=== PATIENT | female | born 1995 | race Caucasian/White ===

== ENCOUNTER → 2016-09-27 | Outpatient (CLI) | payer MEDICAID ==
--- NOTE | 2016-09-27 10:36 | MR ---
EXAMINATION TYPE: MR knee LT wo con DATE OF EXAM: 09/27/2016 8:48 AM COMPARISON: Outside left knee x-ray September 13, 2016 HISTORY: Left knee pain per order. Inner knee pain and swelling for 2 months per patient. TECHNIQUE: Multiplanar, multisequence images of the knee is performed without IV contrast. FINDINGS: MEDIAL MENISCUS: Anterior horn is intact without tear. Some increased signal posterior horn of medial meniscus does not extend to articular surface seen on sagittal images 24 through 21 posterior aspect . LATERAL MENISCUS: Anterior and posterior horns are intact without tear. CRUCIATE LIGAMENTS: The anterior and posterior cruciate ligaments are intact and unremarkable. COLLATERAL LIGAMENTS: The medial collateral ligament and lateral collateral ligament complex are inta ct and unremarkable. EXTENSOR MECHANISM: Visualized quadriceps and patellar tendons are intact. EFFUSION: There is fairly moderate to large size suprapatellar joint effusion. Some internal debris m ay reflect product of synovitis. POPLITEAL CYST: No popliteal/bhakta cyst. TRICOMPARTMENT SPACES: Tricompartment joint spaces are preserved. No significant spurring is seen. CARTILAGE: Tricompartment articular cartilage is maintained. No significant chondromalacia patella is noted. BONE MARROW SIGNAL: No focal abnormal marrow signal is appreciated. OTHER: No additional significant abnormality is appreciated. IMPRESSION: 1. Moderate to large size suprapatellar joint effusion, possible synovitis, clinical correlation advi sed. 2. Intrasubstance tear posterior horn of medial meniscus, no full-thickness meniscal or ligamentous t ear identified.
== END | disposition home or self-care (01) ==
LOC: RADMRIMAIN 08:00
PROVIDERS: ATTEND Orthopaedic Surgery
DX: S83.242A Other tear of medial meniscus, current injury, left knee, initial encounter (principal)

== ENCOUNTER 2016-09-29 18:24 | Inpatient (IN) | payer MEDICAID ==
--- NOTE | 2016-09-29 19:25 | ED ---
Psych HPI - General Chief Complaint: Psychiatric Symptoms Stated Complaint: SUICIDAL THOUGHTS Time Seen by Provider: 09/29/16 19:09 Source: patient Mode of arrival: ambulatory - History of Present Illness Initial Comments: Is a 20-year-old woman who presents to be evaluated for worsening of depression and also suicidal ideation. The patient relates that she had a significantly stressful event about 4 or 5 months ago, and that she has had worsening depression since that time . she states that she is also having thoughts of harming herself. She has no history of previous psychiatric treatment. Patient denies any hallucinations or homicidal ideation. MD Complaint: suicidal ideation, feels depressed -: month(s) Associated Psychiatric Symptoms: depression, suicidal ideation History of same: Yes Quality: getting worse Improves With: none Worsens With: none Context: significant life stressor Associated Symptoms: denies other symptoms - Related Data Home Medications Medication Instructions Recorded Confirmed Ibuprofen [Motrin] 800 mg PO BID PRN 09/29/16 09/29/16 Norgestimate-Ethinyl Estradiol 1 tab PO DAILY 09/29/16 09/29/16 [Tri-Sprintec Tablet] Allergies Allergy/AdvReac Type Severity Reaction Status Date / Time No Known Allergies Allergy Verified 09/29/16 18:59 Review of Systems ROS Statement: Those systems with pertinent positive or pertinent negative responses have been documented in the HPI. ROS Other: All systems not noted in ROS Statement are negative. Constitutional: Denies: fever, chills, weakness Respiratory: Denies: cough, dyspnea Cardiovascular: Denies: chest pain Gastrointestinal: Denies: abdominal pain, nausea, vomiting Genitourinary: Denies: dysuria, hematuria, abnormal menses Musculoskeletal: Denies: back pain Skin: Denies: rash Neurological: Denies: headache Past Medical History Past Medical History: No Reported History History of Any Multi-Drug Resistant Organisms: None Reported Past Surgical History: No Surgical Hx Reported Past Psychological History: Anxiety, Depression Smoking Status: Never smoker Past Alcohol Use History: Occasional Past Drug Use History: None Reported General Exam Limitations: no limitations General appearance: alert, in no apparent distress Head exam: Present: atraumatic, normocephalic Eye exam: Present: normal appearance. Absent: scleral icterus, conjunctival injection Respiratory exam: Present: normal lung sounds bilaterally. Absent: respiratory distress, wheezes, rales, rhonchi, stridor Cardiovascular Exam: Present: regular rate, normal rhythm, normal heart sounds. Absent: systolic murmur, diastolic murmur, rubs, gallop GI/Abdominal exam: Present: soft. Absent: distended, tenderness, guarding, rebound Extremities exam: Absent: pedal edema, calf tenderness Neurological exam: Present: alert Psychiatric exam: Present: normal affect, depressed, suicidal ideation. Absent : agitated, anxious, flat affect, manic, homicidal ideation Skin exam: Present: warm, dry, intact, normal color. Absent: rash Course Vital Signs 09/29/16 18:32 Temperature 97.4 F L Pulse Rate 89 Respiratory 20 Rate Blood Pressure 131/81 O2 Sat by Pulse 96 Oximetry Medical Decision Making - Lab Data Lab Results 09/29/16 Range/Units 19:07 Urine Opiates Screen Not Detected (NotDetected) Ur Oxycodone Screen Not Detected (NotDetected) Urine Methadone Screen Not Detected (NotDetected) Ur Propoxyphene Screen Not Detected (NotDetected) Ur Barbiturates Screen Not Detected (NotDetected) U Tricyclic Antidepress Not Detected (NotDetected) Ur Phencyclidine Scrn Not Detected (NotDetected) Ur Amphetamines Screen Not Detected (NotDetected) U Methamphetamines Scrn Not Detected (NotDetected) U Benzodiazepines Scrn Not Detected (NotDetected) Urine Cocaine Screen Not Detected (NotDetected) U Marijuana (THC) Screen Not Detected (NotDetected) Disposition Clinical Impression: Mood disorder Disposition: ADMITTED IP TO THIS [facility] Condition: Fair Referrals: Lucero Fernandez MD [Primary Care Provider] - 1-2 days
[2016-09-29] MEDS ORDERED: MAG HYDROX/AL HYDROX/SIMETH 30 ML CUP PO PRN (21:45)
[2016-09-29] MEDS ORDERED: LORazepam 1 MG TAB PO PRN (21:45)
[2016-09-29] MEDS ORDERED: ACETAMINOPHEN TAB 325 MG TAB PO PRN (21:45)
[2016-09-30 04:52] VITALS: RESP 16; BMI 18.2
[2016-09-30 06:39] VITALS: BP 98/55; PULSE 64; TEMP 97.9
[2016-09-30] MEDS ORDERED: OLANZapine 5 MG TAB PO SCH (09:00)
[2016-09-30 10:03] LABS: Aty Lym Flag Slight; CH 29.2; CHCM 33.6; HCT 39.6 % (34.0-46.0); HDW 2.48; HGB 13.5 gm/dL (11.4-16.0); MCH 29.8 pg (25.0-35.0); MCHC 34.2 g/dL (31.0-37.0); MCV 87.1 fL (80.0-100.0); Mean Platelet Volume 7.9; RBC 4.55 m/uL (3.80-5.40); RDW 12.4 % (11.5-15.5); WBC 5.9 k/uL (4.0-11.0); WBC (Perox) 5.69
[2016-09-30 10:40] LABS: Add Differential Manual Differential
[2016-09-30 10:44] LABS: Nucleated Red Blood Cells 0 /100 WBC (0-0); Total Cells Counted 100
[2016-09-30] MEDS ORDERED: ESCITALOPRAM 10 MG TAB PO SCH (11:15)
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
--- NOTE | 2016-09-30 13:58 | P.PN ---
Progress Note - Text Came to see patient at the psych unit, she was already discharged home. Her stay was less than 24 hours she was not seen in medical consultation
[2016-09-30 15:30] LABS: ALT 51 U/L (9-52); AST 38 U/L (14-36); Alkaline Phosphatase 43 U/L (38-126); Anion Gap 13 mmol/L; Blood Urea Nitrogen 13 mg/dL (7-17); Carbon Dioxide 25 mmol/L (22-30); Chloride 105 mmol/L (98-107); Glucose 72 mg/dL (74-99); Non-African American GFR(MDRD) >60 (>60 ml/min/1.73 sqM); Potassium 4.2 mmol/L (3.5-5.1); Sodium 143 mmol/L (137-145); Total Bilirubin 2.3 mg/dL (0.2-1.3); Total Protein 7.7 g/dL (6.3-8.2)
== END 2016-09-30 12:37 | disposition home or self-care (01) | DRG 885 ==
LOC: EC 18:24 → 3MHU 21:40
PROVIDERS: ADMIT Psychiatry & Neurology Psychiatry; ATTEND Psychiatry & Neurology Psychiatry
DX: F32.2 Major depressive disorder, single episode, severe without psychotic features (principal); R45.851 Suicidal ideations; F06.4 Anxiety disorder due to known physiological condition; F41.0 Panic disorder [episodic paroxysmal anxiety]; F43.10 Post-traumatic stress disorder, unspecified; M25.562 Pain in left knee; Z79.3 Long term (current) use of hormonal contraceptives
CPT/HCPCS: 80053; 80306; 82075; 84443; 85025; 99285

== ENCOUNTER 2016-11-09 16:58 | Inpatient (IN) | payer MEDICAID ==
[2016-11-09] MEDS ORDERED: SODIUM CHLORIDE 0.9% 1,000 ML IV STA (17:15)
[2016-11-09 17:27] LABS: Glucose,Whole Blood 84 mg/dL (75-99)
[2016-11-09 17:31] LABS: Basophils # (A) 0.1 k/uL (0-0.2); Basophils % (A) 1 %; CH 29.4; CHCM 34.8; Eosinophils # (A) 0.1 k/uL (0-0.7); Eosinophils % (A) 1 %; HCT 39.9 % (34.0-46.0); HGB 13.8 gm/dL (11.4-16.0); Luc # (Auto) 0.32; Luc % (Auto) 3; Lymphocytes # (A) 3.3 k/uL (1.0-4.8); Lymphocytes % (A) 35 %; MCH 29.4 pg (25.0-35.0); MCHC 34.6 g/dL (31.0-37.0); MCV 84.8 fL (80.0-100.0); Mean Platelet Volume 8.3; Monocytes # (A) 0.4 k/uL (0-1.0); Monocytes % (A) 4 %; Neutrophils # (A) 5.4 k/uL (1.3-7.7); Neutrophils % (A) 57 %; RDW 12.5 % (11.5-15.5); WBC 9.6 k/uL (3.8-10.6); WBC (Perox) 9.07
--- NOTE | 2016-11-09 17:31 | ED ---
Syncope HPI <Nhan Barrera - Last Filed: 11/09/16 18:58> - General Source: patient, RN notes reviewed Mode of arrival: EMS <Idalia Mcintosh - Last Filed: 11/09/16 19:53> - General Chief Complaint: Syncope Stated Complaint: Syncope Time Seen by Provider: 11/09/16 17:13 - History of Present Illness Initial Comments: Patient is a 21-year-old female presents emergency room for evaluation of possible syncopal episode. Patient states she was at work for the past hour and a half, standing and suddenly felt chest pain. Patient states she was walking towards the bathroom when she felt very lightheaded. Patient states she woke up on the bathroom ground. Patient states her coworker caught her as she passed out. Patient states that she was told she was unconscious for about 15-30 seconds. Back when she was in high school. Patient denies cardiac history. Patient states she takes a control daily and ibuprofen. Patient denies any recent changes medication recent dosages medication. Patient states she didn't eat today. Patient does state she has a headache and slight dizziness. Patient denies any current chest pain or shortness of breath. Patient denies nausea or vomiting. Patient denies abdominal pain. Patient denies fevers or chills. (Idalia Mcintosh) - Related Data Home Medications Medication Instructions Recorded Confirmed Ibuprofen [Motrin] 800 mg PO BID PRN 09/29/16 11/09/16 Norgestimate-Ethinyl Estradiol 1 tab PO HS 09/29/16 11/09/16 [Tri-Sprintec Tablet] Previous Rx's Medication Instructions Recorded Escitalopram [Lexapro] 10 mg PO DAILY #30 tab 09/30/16 Allergies Allergy/AdvReac Type Severity Reaction Status Date / Time No Known Allergies Allergy Verified 11/09/16 17:14 Review of Systems ROS Other: All systems not noted in ROS Statement are negative. <Nhan Barrera - Last Filed: 11/09/16 18:58> ROS Other: All systems not noted in ROS Statement are negative. <Idalia Mcintosh - Last Filed: 11/09/16 19:53> ROS Statement: Those systems with pertinent positive or pertinent negative responses have been documented in the HPI. Past Medical History Past Medical History: No Reported History History of Any Multi-Drug Resistant Organisms: None Reported Past Surgical History: No Surgical Hx Reported Past Psychological History: Anxiety, Depression Smoking Status: Never smoker <Idalia Mcintosh - Last Filed: 11/09/16 19:53> General Exam <Nhan Barrera - Last Filed: 11/09/16 18:58> Limitations: no limitations General appearance: alert, in no apparent distress Head exam: Present: atraumatic, normocephalic, normal inspection Eye exam: Present: normal appearance, PERRL, EOMI Pupils: Present: normal accommodation ENT exam: Present: normal exam Neck exam: Present: normal inspection, full ROM. Absent: tenderness, lymphadenopathy Respiratory exam: Present: normal lung sounds bilaterally. Absent: respiratory distress Cardiovascular Exam: Present: regular rate, normal rhythm, normal heart sounds Extremities exam: Present: normal inspection Back exam: Present: normal inspection Neurological exam: Present: alert, oriented X3, CN II-XII intact, normal gait Expanded Neurological exam: Present: inattentive Patient oriented to: Present: person, place, time Speech: Present: fluid speech Cranial nerves: EOM's Intact: Normal, Facial Sensation: Normal Sensory exam: Upper Extremity Light Touch: Normal, Lower Extremity Light Touch: Normal Motor strength exam: RUE: 5, LUE: 5, RLE: 5, LLE: 5 Eye Response: (4) open spontaneously Motor Response: (6) obeys commands Verbal Response: (5) oriented Psychiatric exam: Present: normal affect, normal mood Skin exam: Present: warm, dry, intact, normal color. Absent: rash <Idalia Mcintosh - Last Filed: 11/09/16 19:53> - General Exam Comments Initial Comments: Laying in exam room, no acute distress. (Idalia Mcintosh) EKG Findings - EKG Comments: EKG Findings:: Normal sinus rhythm, ventricular rate 64 bpm, NH interval 154 ms , QRS duration 84 ms, QT/QTc 422/435 ms <Idalia Mcintosh - Last Filed: 11/09/16 19:53> Medical Decision Making - Lab Data Result diagrams: 11/09/16 17:17 11/09/16 17:17 <Nhan Barrera - Last Filed: 11/09/16 18:58> - Lab Data Result diagrams: 11/09/16 17:17 11/09/16 17:17 <Idalia Mcintosh - Last Filed: 11/09/16 19:53> - Medical Decision Making Medical decision-making. This is a 21-year-old female who reports while on the job she developed severe epigastric discomfort, she describes as a severe squeezing pain. She became red faced wanted to walk to the bathroom locally a coworker walked with her and she passed out. She was not diaphoretic no seizure activity. She was unconscious for approximately 15 seconds and awakened. Mild headache. The discomfort to the epigastric region subsided. The patient had labs recently , all numbers are normal except for total bilirubin was elevated at 2.9 today's total bilirubin still elevated 2.6. Troponin is less than 0.012. Today her TSH was 0.3 and T4 was 1.34 all within normal limits. Kidneys are working well sugars 92. EKG normal sinus rhythm. I examined the patient lungs clear to auscultation heart without murmur. Her logically intact. Abdomen benign. I discussed the case with Dr. Hanna her at the mother's request for him specifically. The patient will have an ultrasound of the right upper quadrant amylase, lipase added to her labs. He is requesting consultation from GI, Dr. Maria The patient will also have an ultrasound of the right upper quadrant and pancreas. Dr. Barrera (Nhan Barrera) - Lab Data Lab Results 11/09/16 11/09/16 11/09/16 Range/Units 17:17 17:17 17:17 WBC 9.6 (3.8-10.6) k/uL RBC 4.70 (3.80-5.40) m/uL Hgb 13.8 (11.4-16.0) gm/dL Hct 39.9 (34.0-46.0) % MCV 84.8 (80.0-100.0) fL MCH 29.4 (25.0-35.0) pg MCHC 34.6 (31.0-37.0) g/dL RDW 12.5 (11.5-15.5) % Plt Count 294 (150-450) k/uL Neutrophils % 57 % Lymphocytes % 35 % Monocytes % 4 % Eosinophils % 1 % Basophils % 1 % Neutrophils # 5.4 (1.3-7.7) k/uL Lymphocytes # 3.3 (1.0-4.8) k/uL Monocytes # 0.4 (0-1.0) k/uL Eosinophils # 0.1 (0-0.7) k/uL Basophils # 0.1 (0-0.2) k/uL PT 11.0 (9.0-12.0) sec INR 1.1 (<1.1) APTT 27.9 (22.0-30.0) sec Sodium 141 (137-145) mmol/L Potassium 3.8 (3.5-5.1) mmol/L Chloride 104 (98-107) mmol/L Carbon Dioxide 24 (22-30) mmol/L Anion Gap 13 mmol/L BUN 15 (7-17) mg/dL Creatinine 0.76 (0.52-1.04) mg/dL Est GFR (MDRD) Af Amer >60 (>60 ml/min/1.73 sqM) Est GFR (MDRD) Non-Af >60 (>60 ml/min/1.73 sqM) Glucose 92 (74-99) mg/dL POC Glucose (mg/dL) (75-99) mg/dL POC Glu Linux Programmer ID Calcium 10.1 (8.4-10.2) mg/dL Magnesium 1.7 (1.6-2.3) mg/dL Total Bilirubin 2.6 H (0.2-1.3) mg/dL AST 33 (14-36) U/L ALT 42 (9-52) U/L Alkaline Phosphatase 56 (38-126) U/L Total Creatine Kinase (30-135) U/L CK-MB (CK-2) (0.0-2.4) ng/mL CK-MB (CK-2) Rel Index Troponin I (0.000-0.034) ng/mL Total Protein 8.0 (6.3-8.2) g/dL Albumin 4.7 (3.5-5.0) g/dL Amylase (30-110) U/L Lipase (23-300) U/L Urine Color Urine Appearance (Clear) Urine pH (5.0-8.0) Ur Specific Industry (1.001-1.035) Urine Protein (Negative) Urine Glucose (UA) (Negative) Urine Ketones (Negative) Urine Blood (Negative) Urine Nitrite (Negative) Urine Bilirubin (Negative) Urine Urobilinogen (<2.0) mg/dL Ur Leukocyte Esterase (Negative) Urine WBC (0-5) /hpf Ur Squamous Epith Cells (0-4) /hpf Amorphous Sediment (None) /hpf Urine Bacteria (None) /hpf Urine Mucus (None) /hpf Urine HCG, Qual (Not Detectd) 11/09/16 11/09/16 11/09/16 Range/Units 17:17 17:23 17:26 WBC (3.8-10.6) k/uL RBC (3.80-5.40) m/uL Hgb (11.4-16.0) gm/dL Hct (34.0-46.0) % MCV (80.0-100.0) fL MCH (25.0-35.0) pg MCHC (31.0-37.0) g/dL RDW (11.5-15.5) % Plt Count (150-450) k/uL Neutrophils % % Lymphocytes % % Monocytes % % Eosinophils % % Basophils % % Neutrophils # (1.3-7.7) k/uL Lymphocytes # (1.0-4.8) k/uL Monocytes # (0-1.0) k/uL Eosinophils # (0-0.7) k/uL Basophils # (0-0.2) k/uL PT (9.0-12.0) sec INR (<1.1) APTT (22.0-30.0) sec Sodium (137-145) mmol/L Potassium (3.5-5.1) mmol/L Chloride (98-107) mmol/L Carbon Dioxide (22-30) mmol/L Anion Gap mmol/L BUN (7-17) mg/dL Creatinine (0.52-1.04) mg/dL Est GFR (MDRD) Af Amer (>60 ml/min/1.73 sqM) Est GFR (MDRD) Non-Af (>60 ml/min/1.73 sqM) Glucose (74-99) mg/dL POC Glucose (mg/dL) 84 (75-99) mg/dL POC Glu Linux Programmer ID Nola Marks Calcium (8.4-10.2) mg/dL Magnesium (1.6-2.3) mg/dL Total Bilirubin (0.2-1.3) mg/dL AST (14-36) U/L ALT (9-52) U/L Alkaline Phosphatase (38-126) U/L Total Creatine Kinase 69 (30-135) U/L CK-MB (CK-2) 0.3 (0.0-2.4) ng/mL CK-MB (CK-2) Rel Index 0.4 Troponin I <0.012 (0.000-0.034) ng/mL Total Protein (6.3-8.2) g/dL Albumin (3.5-5.0) g/dL Amylase (30-110) U/L Lipase (23-300) U/L Urine Color Yellow Urine Appearance Cloudy H (Clear) Urine pH 7.5 (5.0-8.0) Ur Specific Industry 1.012 (1.001-1.035) Urine Protein Negative (Negative) Urine Glucose (UA) Negative (Negative) Urine Ketones Negative (Negative) Urine Blood Negative (Negative) Urine Nitrite Negative (Negative) Urine Bilirubin Negative (Negative) Urine Urobilinogen <2.0 (<2.0) mg/dL Ur Leukocyte Esterase Small H (Negative) Urine WBC 6 H (0-5) /hpf Ur Squamous Epith Cells 10 H (0-4) /hpf Amorphous Sediment Occasional H (None) /hpf Urine Bacteria Occasional H (None) /hpf Urine Mucus Rare H (None) /hpf Urine HCG, Qual (Not Detectd) 11/09/16 11/09/16 Range/Units 17:26 18:58 WBC (3.8-10.6) k/uL RBC (3.80-5.40) m/uL Hgb (11.4-16.0) gm/dL Hct (34.0-46.0) % MCV (80.0-100.0) fL MCH (25.0-35.0) pg MCHC (31.0-37.0) g/dL RDW (11.5-15.5) % Plt Count (150-450) k/uL Neutrophils % % Lymphocytes % % Monocytes % % Eosinophils % % Basophils % % Neutrophils # (1.3-7.7) k/uL Lymphocytes # (1.0-4.8) k/uL Monocytes # (0-1.0) k/uL Eosinophils # (0-0.7) k/uL Basophils # (0-0.2) k/uL PT (9.0-12.0) sec INR (<1.1) APTT (22.0-30.0) sec Sodium (137-145) mmol/L Potassium (3.5-5.1) mmol/L Chloride (98-107) mmol/L Carbon Dioxide (22-30) mmol/L Anion Gap mmol/L BUN (7-17) mg/dL Creatinine (0.52-1.04) mg/dL Est GFR (MDRD) Af Amer (>60 ml/min/1.73 sqM) Est GFR (MDRD) Non-Af (>60 ml/min/1.73 sqM) Glucose (74-99) mg/dL POC Glucose (mg/dL) (75-99) mg/dL POC Glu Linux Programmer ID Calcium (8.4-10.2) mg/dL Magnesium (1.6-2.3) mg/dL Total Bilirubin (0.2-1.3) mg/dL AST (14-36) U/L ALT (9-52) U/L Alkaline Phosphatase (38-126) U/L Total Creatine Kinase (30-135) U/L CK-MB (CK-2) (0.0-2.4) ng/mL CK-MB (CK-2) Rel Index Troponin I (0.000-0.034) ng/mL Total Protein (6.3-8.2) g/dL Albumin (3.5-5.0) g/dL Amylase 43 (30-110) U/L Lipase 120 (23-300) U/L Urine Color Urine Appearance (Clear) Urine pH (5.0-8.0) Ur Specific Industry (1.001-1.035) Urine Protein (Negative) Urine Glucose (UA) (Negative) Urine Ketones (Negative) Urine Blood (Negative) Urine Nitrite (Negative) Urine Bilirubin (Negative) Urine Urobilinogen (<2.0) mg/dL Ur Leukocyte Esterase (Negative) Urine WBC (0-5) /hpf Ur Squamous Epith Cells (0-4) /hpf Amorphous Sediment (None) /hpf Urine Bacteria (None) /hpf Urine Mucus (None) /hpf Urine HCG, Qual Not Detected (Not Detectd) Disposition <Nhan Barrera - Last Filed: 11/09/16 18:58> Decision Date: 11/09/16 <Idalia Mcintosh - Last Filed: 11/09/16 19:53> Clinical Impression: Syncopal episodes Disposition: ADMITTED IP TO THIS [facility] Condition: Stable Referrals: Lucero Fernandez MD [STAFF PHYSICIAN] - 1-2 days
[2016-11-09 17:44] LABS: ALT 42 U/L (9-52); AST 33 U/L (14-36); Alkaline Phosphatase 56 U/L (38-126); Anion Gap 13 mmol/L; Blood Urea Nitrogen 15 mg/dL (7-17); Calcium 10.1 mg/dL (8.4-10.2); Carbon Dioxide 24 mmol/L (22-30); Chloride 104 mmol/L (98-107); Glucose 92 mg/dL (74-99); Magnesium 1.7 mg/dL (1.6-2.3); Non-African American GFR(MDRD) >60 (>60 ml/min/1.73 sqM); Potassium 3.8 mmol/L (3.5-5.1); Sodium 141 mmol/L (137-145); Total Bilirubin 2.6 mg/dL (0.2-1.3)
[2016-11-09 17:49] LABS: Creatine Kinase 69 U/L (30-135)
[2016-11-09 17:54] LABS: INR 1.1 (<1.1); Partial Thromboplastin Time 27.9 sec (22.0-30.0)
[2016-11-09 18:01] LABS: Amorphous Sediment,Urine Occasional /hpf; Appearance,Urine Cloudy (Clear); Bacteria,Urine Occasional /hpf; Bilirubin,Urine Negative (Negative); Glucose,Urine (UA) Negative (Negative); Ketones,Urine Negative (Negative); Leukocyte Esterase,Urine Small (Negative); Mucus,Urine Rare /hpf; Nitrite,Urine Negative (Negative); PH, Urine 7.5 (5.0-8.0); Particle Count 7777; Protein,Urine Negative (Negative); Specific Gravity,Urine 1.012 (1.001-1.035); Squamous Epithelial Cell,Urine 10 /hpf (0-4); UA Billing (MACRO vs. MICRO) MICRO; Urobilinogen,Urine <2.0 mg/dL (<2.0); WBC,Urine 6 /hpf (0-5)
[2016-11-09 18:02] LABS: Creatine Kinase MB 0.3 ng/mL (0.0-2.4); Troponin I <0.012 ng/mL (0.000-0.034)
[2016-11-09] MEDS ORDERED: NALOXONE 0.4 MG/ML 1 ML VIAL IV PRN (18:48)
[2016-11-09] MEDS ORDERED: IBUPROFEN 400 MG TAB PO PRN (18:48)
[2016-11-09 19:07] LABS: Amylase 43 U/L (30-110)
[2016-11-09] MEDS: SODIUM CHLORIDE 0.9% 1,000 ML IV SCH (19:14)
--- NOTE | 2016-11-09 20:10 | XR ---
EXAMINATION TYPE: XR chest 2V DATE OF EXAM: 11/09/2016 COMPARISON: NONE HISTORY: Syncope TECHNIQUE: Frontal and lateral views of the chest are obtained. FINDINGS: Heart and mediastinum are normal. Lungs are clear. Diaphragm is normal. Bony thorax and so ft tissues appear normal. There are chest leads. IMPRESSION: Normal chest
--- NOTE | 2016-11-09 20:14 | US ---
EXAMINATION TYPE: US abdomen limited DATE OF EXAM: 11/09/2016 COMPARISON: NONE CLINICAL HISTORY: Pain. EXAM MEASUREMENTS: Liver Length: 16.4 cm Gallbladder Wall: 0.1 cm CBD: 0.2 cm Right Kidney: 10.5 x 3.9 x 4.6 cm Pancreas: Obscured by bowel gas, visualized portions wnl Liver: wnl Gallbladder: wnl Evidence for sonographic Sylvester's sign: No CBD: wnl Right Kidney: No hydronephrosis or masses seen IMPRESSION: No gallstones or dilated ducts. Negative right upper quadrant abdominal sonogram.
[2016-11-09 22:13] VITALS: BMI 18.0
[2016-11-10] MEDS: ACETAMINOPHEN TAB 325 MG TAB PO PRN ×4 (00:09→16:59)
[2016-11-10 07:09] LABS: Basophils # (A) 0.1 k/uL (0-0.2); Basophils % (A) 1 %; CH 29.1; CHCM 33.7; Eosinophils # (A) 0.1 k/uL (0-0.7); Eosinophils % (A) 2 %; HCT 35.8 % (34.0-46.0); HDW 2.25; HGB 12.1 gm/dL (11.4-16.0); Luc # (Auto) 0.29; Luc % (Auto) 4; Lymphocytes # (A) 3.1 k/uL (1.0-4.8); Lymphocytes % (A) 44 %; MCH 29.2 pg (25.0-35.0); MCHC 33.7 g/dL (31.0-37.0); MCV 86.7 fL (80.0-100.0); Mean Platelet Volume 8.5; Monocytes # (A) 0.4 k/uL (0-1.0); Monocytes % (A) 5 %; Neutrophils # (A) 3.1 k/uL (1.3-7.7); Neutrophils % (A) 44 %; RBC 4.13 m/uL (3.80-5.40); RDW 12.5 % (11.5-15.5); WBC 7.1 k/uL (3.8-10.6); WBC (Perox) 7.29
[2016-11-10 07:19] LABS: ALT 41 U/L (9-52); AST 27 U/L (14-36); Alkaline Phosphatase 47 U/L (38-126); Anion Gap 10 mmol/L; Blood Urea Nitrogen 12 mg/dL (7-17); Carbon Dioxide 25 mmol/L (22-30); Chloride 107 mmol/L (98-107); Glucose 89 mg/dL (74-99); Non-African American GFR(MDRD) >60 (>60 ml/min/1.73 sqM); Potassium 4.5 mmol/L (3.5-5.1); Sodium 142 mmol/L (137-145); Total Bilirubin 1.9 mg/dL (0.2-1.3); Total Protein 6.5 g/dL (6.3-8.2)
[2016-11-10] MEDS ORDERED: HYDROcodone/APAP 5-325MG 1 EACH TAB PO PRN (09:11)
[2016-11-10] MEDS: ONDANSETRON 4 MG/2 ML VIAL IVP PRN ×2 (09:25)
--- NOTE | 2016-11-10 11:17 | P.CONS ---
History of Present Illness - Reason for Consult Consult date: 11/10/16 Elevated bilirubin Requesting physician: Kendal Arias - History of Present Illness 21-year-old female admitted with evaluation for possible syncopal episode and chest discomfort with lightheadedness. Patient was walking to the bathroom at work and woke up on the floor. Coworkers stated she passed out. History of syncopal episode in high school followed by Holter monitoring 24 hours etiology unclear. Sister with history of arrhythmia/POTS. Consultation requested for elevated bilirubin. Admission total bilirubin 2.6. AST 33. ALT 42. Alkaline phosphates 56. Bilirubin today 1.9. Lipase 120. Amylase 43. HCG not detected. Urinalysis small leukocyte esterase, occasional urine bacteria. Abdominal ultrasound no gallstones or dilated ducts. CBD 0.2 cm. Reports intermittent midepigastric discomfort with reflux at times. Denies fever, chills, hematemesis, hematochezia, melena. Denies right upper quadrant abdominal pain. No history of known liver disorders. No history of autoimmune diseases. No changes in medications. No alcohol. No history of intravenous drug abuse. Review of Systems Constitutional: Denies fever, chills, sweats, weight gain, or loss. HEENT: Negative for migraines, blurred vision or loss, earaches, drainage, tinnitus, oral mucosal lesions, dysphagia, or odynophagia. CARDIAC: Negative for chest pain, arrhythmias, or palpitation. RESPIRATORY: Negative for shortness of breath, hemoptysis, cough, or sputum production. GI: See HPI for pertinent findings. : Negative for hematuria, urgency, frequency, polyuria, or dysuria. GYNc: Denies possibility of . Negative vaginal discharge. MUSCULOSKELETAL: Negative for muscle aches, swelling, arthritis, and arthralgias. NEUROLOGIC: Negative for stroke or TIA. ENDOCRINE: Negative for thyroid problems. SKIN: Negative for rash or itching. PSYCHIATRIC: History of depression and anxietymale All systems: negative (See HPI) Past Medical History Past Medical History: Syncope History of Any Multi-Drug Resistant Organisms: None Reported Past Surgical History: No Surgical Hx Reported Past Psychological History: Anxiety, Depression Smoking Status: Never smoker Medications and Allergies Home Medications Medication Instructions Recorded Confirmed Type Ibuprofen [Motrin] 800 mg PO BID PRN 09/29/16 11/09/16 History Norgestimate-Ethinyl Estradiol 1 tab PO HS 09/29/16 11/09/16 History [Tri-Sprintec Tablet] Allergies Allergy/AdvReac Type Severity Reaction Status Date / Time No Known Allergies Allergy Verified 11/09/16 17:14 Physical Exam Vitals: Vital Signs Temp Pulse Pulse Pulse Pulse Resp BP 11/10/16 01:35 98 F 61 16 11/09/16 21:51 98.4 F 60 16 11/09/16 21:07 98.1 F 58 L 18 117/69 11/09/16 19:05 75 18 117/78 11/09/16 18:05 68 18 110/69 11/09/16 18:02 97.6 F 85 87 69 15 11/09/16 16:59 96.9 F L 68 18 113/66 BP BP BP Pulse Ox 11/10/16 01:35 91/47 97 11/09/16 21:51 107/74 99 11/09/16 21:07 98 11/09/16 19:05 98 11/09/16 18:05 98 11/09/16 18:02 109/70 116/71 110/69 100 11/09/16 16:59 98 Intake and Output 11/09/16 11/10/16 11/10/16 22:59 06:59 14:59 Intake Total 825 Balance 825 Intake: Intake, IV Titration 825 Amount Sodium Chloride 0.9% 1, 825 000 ml @ 75 mls/hr IV . [id number] [facility] Rx#:[id number] Other: Weight 52.163 kg General appearance: The patient is alert, oriented, in no acute distress. HET: Head is normocephalic and atraumatic. Pupils are equal and reactive. Oropharynx is clear without lesions. Neck: Supple without lymphadenopathy. Trachea midline. Heart: S1 S2. Regular rate and rhythm. Lungs: No crackles or wheezes are heard. Abdomen: Soft, nontender, nondistended with bowel sounds. No peritoneal signs. No palpable organomegaly or masses. Extremities: Normal skin color and turgor. No cyanosis, rash, ulceration, clubbing, or edema. Radial and pedal pulses are 2/4 bilaterally. Neurological: No focal deficits. Strength and sensation are grossly intact. Results CBC & Chem 7: 11/10/16 06:34 11/10/16 06:34 Labs: Abnormal Lab Results - Last 24 Hours (Table) 11/09/16 11/09/16 11/10/16 Range/Units 17:17 17:26 06:34 Total Bilirubin 2.6 H 1.9 H (0.2-1.3) mg/dL Urine Appearance Cloudy H (Clear) Ur Leukocyte Esterase Small H (Negative) Urine WBC 6 H (0-5) /hpf Ur Squamous Epith Cells 10 H (0-4) /hpf Amorphous Sediment Occasional H (None) /hpf Urine Bacteria Occasional H (None) /hpf Urine Mucus Rare H (None) /hpf US - abdomen: report reviewed (Dr. Maria) Assessment and Plan (1) Hyperbilirubinemia Narrative/Plan: Possible Gilbert's disease Status: Acute (2) Syncopal episodes Status: Acute Plan: 1. Hepatitis panel. Fractionated bilirubin. Pepcid 20 mg daily. We'll follow closely with you. Thank you for this kind referral and the opportunity to participate in the care of your patient. This consultation was discussed with Dr. Maria. The impression and plan of care have been directed as dictated.
[2016-11-10] MEDS: FAMOTIDINE 20 MG TAB PO SCH ×2 (11:29→21:18)
[2016-11-10] MEDS: SODIUM CHLORIDE 0.9% 1,000 ML IV SCH ×2 (11:41→17:01)
--- NOTE | 2016-11-10 12:36 | P.CRDCN ---
History of Present Illness Consult date: 11/10/16 Consult reason: sycope History of present illness: 21-year-old lady with no significant past medical history comes to Hospital having had an episode of syncope. She works at [employer] had an episode of sharp precordial chest pain and she was walking to the restroom and had a syncopal event. She did not fall down as a coworker helped her EMS was called and came to the ER and got admitted. Since being admitted to hospital she is doing well and hasn't had any further episodes of syncope. The chest and epigastric discomfort have resolved. Her chest pain is sharp atypical unassociated with diaphoresis came on at rest without definite radiation to neck , back and bilirubin was elevated on admission which which necessitated GI evaluation which is currently in progress. I reviewed her monitor strips and it shows that she is in sinus rhythm with sinus bradycardia. I reviewed her labs. I'm going to obtain a 2-D echo. I will continue her on telemetric. I don't see an EKG I will obtain one. Review of Systems Constitutional: Denies chills. Denies fever. Eyes: Denies blurred vision. Denies pain. Ears, nose, mouth and throat: Denies headache. Denies sore throat. Cardiovascular: Denies chest pain. Denies shortness of breath. Patient had syncope and chest pain. Respiratory: Denies cough. Gastrointestinal: Denies abdominal pain. Denies diarrhea. Denies nausea. Denies vomiting. Musculoskeletal: Denies myalgias. Integumentary: Denies pruritus. Denies rash. Neurological: Denies numbness. Denies weakness. Psychiatric: Denies anxiety. Denies depression. Endocrine: Denies fatigue. Denies weight change. Genitourinary: Denies burning, hematuria, frequency of urination. Hematological: No anemia or excess bleeding. Past Medical History Past Medical History: Syncope History of Any Multi-Drug Resistant Organisms: None Reported Past Surgical History: No Surgical Hx Reported Past Psychological History: Anxiety, Depression Smoking Status: Never smoker Medications and Allergies Home Medications Medication Instructions Recorded Confirmed Type Ibuprofen [Motrin] 800 mg PO BID PRN 09/29/16 11/09/16 History Norgestimate-Ethinyl Estradiol 1 tab PO HS 09/29/16 11/09/16 History [Tri-Sprintec Tablet] Allergies Allergy/AdvReac Type Severity Reaction Status Date / Time No Known Allergies Allergy Verified 11/09/16 17:14 Physical Exam Vitals: Vital Signs Temp Pulse Pulse Pulse Pulse Resp BP 11/10/16 08:54 54 L 61 48 L 11/10/16 01:35 98 F 61 16 11/09/16 21:51 98.4 F 60 16 11/09/16 21:07 98.1 F 58 L 18 117/69 11/09/16 19:05 75 18 117/78 11/09/16 18:05 68 18 110/69 11/09/16 18:02 97.6 F 85 87 69 15 11/09/16 16:59 96.9 F L 68 18 113/66 BP BP BP Pulse Ox 11/10/16 08:54 104/60 113/70 100/52 11/10/16 01:35 91/47 97 11/09/16 21:51 107/74 99 11/09/16 21:07 98 11/09/16 19:05 98 11/09/16 18:05 98 11/09/16 18:02 109/70 116/71 110/69 100 11/09/16 16:59 98 Intake and Output 11/09/16 11/10/16 11/10/16 22:59 06:59 14:59 Intake Total 825 100 Balance 825 100 Intake: Intake, IV Titration 825 Amount Sodium Chloride 0.9% 1, 825 000 ml @ 75 mls/hr IV . [id number] [facility] Rx#:[id number] Oral 100 Other: Weight 52.163 kg 52.163 kg Patient Weight 11/11/16 06:59 Weight 52.163 kg General: The patient is awake and alert, in no distress, and does not appear acutely ill. Skin: Skin is warm and dry and no rashes or lesions are noted. Eye: Pupils are equal, round and reactive to light, extra-ocular movements are intact; there is normal conjunctiva bilaterally. Ears, nose, mouth and throat: There are moist mucous membranes and no oral lesions. Neck: The neck is supple, there is no tenderness or JVD. Cardiovascular: [ There is a regular rate and rhythm.][ No murmur, rub or gallop is appreciated.] Respiratory: Lungs are clear to auscultation, respirations are non-labored, breath sounds are equal. Gastrointestinal: Soft, non-distended, non-tender abdomen without masses or organomegaly noted. There is no rebound or guarding present. Bowel sounds are unremarkable. Back: There is no tenderness to palpation in the midline. There is no obvious deformity. Musculoskeletal: Normal ROM, no tenderness, There is no pedal edema. There is no calf tenderness or swelling. Extremities:[ No edema.] Vascular: [Femoral pulse is normal.][ Posterior tibial pulses are normal .][ Dorsalis pedis is palpable.] Neurological: CN II-XII intact. There are no obvious motor or sensory deficits. Speech is normal. Psychiatric: Cooperative, appropriate mood & affect, normal judgment. Results 11/10/16 06:34 11/10/16 06:34 Cardiac Enzymes 11/09/16 11/09/16 11/10/16 Range/Units 17: 17: 06:34 AST 33 27 (14-36) U/L CK-MB (CK-2) 0.3 (0.0-2.4) ng/mL Troponin I <0.012 (0.000-0.034) ng/mL Coagulation 11/09/16 Range/Units 17:17 PT 11.0 (9.0-12.0) sec APTT 27.9 (22.0-30.0) sec CBC 11/09/16 11/10/16 Range/Units 17:17 06:34 WBC 9.6 7.1 (3.8-10.6) k/uL RBC 4.70 4.13 (3.80-5.40) m/uL Hgb 13.8 12.1 (11.4-16.0) gm/dL Hct 39.9 35.8 (34.0-46.0) % Plt Count 294 247 (150-450) k/uL Comprehensive Metabolic Panel 11/09/16 11/10/16 Range/Units 17:17 06:34 Sodium 141 142 (137-145) mmol/L Potassium 3.8 4.5 (3.5-5.1) mmol/L Chloride 104 107 (98-107) mmol/L Carbon Dioxide 24 25 (22-30) mmol/L BUN 15 12 (7-17) mg/dL Creatinine 0.76 0.81 (0.52-1.04) mg/dL Glucose 92 89 (74-99) mg/dL Calcium 10.1 9.0 (8.4-10.2) mg/dL AST 33 27 (14-36) U/L ALT 42 41 (9-52) U/L Alkaline Phosphatase 56 47 (38-126) U/L Total Protein 8.0 6.5 (6.3-8.2) g/dL Albumin 4.7 3.7 (3.5-5.0) g/dL Current Medications Generic Name Dose Route Start Last Admin Trade Name Freq PRN Reason Stop Dose Admin Acetaminophen 650 mg 11/09/16 18:48 11/10/16 11:41 Tylenol Tab PO 650 mg Q6HR PRN Administration Mild Pain or Fever > 100.5 Hydrocodone Bitart/Acetaminophen 1 each 11/10/16 09:11 [place] 5-325 PO Q6HR PRN Pain Famotidine 20 mg 11/10/16 10:30 11/10/16 11:29 Pepcid PO 20 mg BID DYLON Administration Sodium Chloride 1,000 mls @ 75 mls/hr 11/09/16 19:00 11/10/16 11:41 Saline 0.9% IV 75 mls/hr .[id number] DYLON Administration Naloxone HCl 0.2 mg 11/09/16 18:48 Narcan IV Q2M PRN Opioid Reversal Ondansetron HCl 4 mg 11/09/16 18:48 11/10/16 09:25 Zofran IVP 4 mg Q8HR PRN Administration Nausea And Vomiting Intake and Output 11/09/16 11/10/16 11/10/16 22:59 06:59 14:59 Intake Total 825 100 Balance 825 100 Intake: Intake, IV Titration 825 Amount Sodium Chloride 0.9% 1, 825 000 ml @ 75 mls/hr IV . [id number] [facility] Rx#:[id number] Oral 100 Other: Weight 52.163 kg 52.163 kg Patient Weight 11/11/16 06:59 Weight 52.163 kg 11/10/16 06:34 11/10/16 06:34 Assessment and Plan Plan: Syncope probably vasovagal related to chest discomfort sinus bradycardia I'm going to obtain a 2-D echo continue to watch her on telemetric I will obtain EKG
[2016-11-10 15:50] LABS: Bilirubin, Delta 0.4 mg/dL (0.0-0.2); Total Bilirubin 1.7 mg/dL (0.2-1.3)
--- NOTE | 2016-11-10 16:10 | P.HPIM ---
History of Present Illness H&P Date: 11/10/16 Chief Complaint: Syncope This is a 20-year-old female with no significant past medical history other than anxiety and depression. Patient does give history that one time in high school she had a syncopal episode and required using a Holter which no arrhythmia was discovered. 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 This was witnessed by her coworker. There was no injury and no injury to her head. She states at the time she had numbness in her hands. She was seen by EMS and brought into [facility] emergency center. She complains of headache since the incident that has continued. Patient does have recent weight loss of 10 pounds in the past 2 weeks which is unexplained. She states she is not trying to lose weight. She also complains of abdominal pain that started this morning. She has followed with a counselor and recently taken off Lexapro after only taking it for 2 weeks. Patient did not think that it was helping her and her counselor thought that it was safe for her to stop. Patient states that she has not been sleeping well for some time. She did have a breakup of engagement with her fianc in August. Yesterday morning she had Been crunch for breakfast and a turkey sandwich for lunch. Apparently this episode happened about one hour after eating her turkey sandwich. Family is concerned that she is not eating very well. Patient states that she thinks she is eating well and has a good appetite. HCG was negative. Urinalysis was cloudy, leukoesterase small WBC 6 and epithelial cells 10. Patient denies any urinary symptoms of burning or pain. Otherwise laboratory studies were normal except for total bilirubin which was elevated. Looking back on previous lab work, patient has had a chronically elevated total bilirubin. Patient was admitted to the [facility] floor for further evaluation. 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 Patient continues to complain of headache and epigastric abdominal pain. Ultrasound gallbladder was negative and chest x-ray was normal. Orthostatic vital signs were negative. Echocardiogram has been obtained and report is pending. Patient states that she feels very weak ever since the incident. Review of Systems All systems: negative Constitutional: Reports weight loss, Denies anorexia, Denies chills, Denies fever, Denies poor appetite Eyes: denies blurred vision, denies pain Ears, nose, mouth and throat: Reports headache, Reports vertigo, Denies dental pain, Denies mouth pain, Denies sinus pain, Denies sore throat Cardiovascular: Reports lightheadedness, Reports syncope, Denies chest pain, Denies decreased exercise tolerance, Denies dyspnea on exertion, Denies edema, Denies irregular heart beat, Denies leg edema, Denies palpitations, Denies shortness of breath Respiratory: Denies cough Gastrointestinal: Denies abdominal pain, Denies diarrhea, Denies nausea, Denies vomiting Genitourinary: Denies dysuria, Denies hematuria Musculoskeletal: Denies myalgias Integumentary: Denies pruritus, Denies rash Neurological: Denies numbness, Denies weakness Psychiatric: Denies anxiety, Denies depression Endocrine: Denies fatigue, Denies weight change Past Medical History Past Medical History: Syncope History of Any Multi-Drug Resistant Organisms: None Reported Past Surgical History: No Surgical Hx Reported Additional Past Surgical History / Comment(s): Chin reconstruction Past Psychological History: Anxiety, Depression Smoking Status: Never smoker Additional Past Alcohol Use History / Comment(s): Patient is a lifelong nonsmoker. She denies any medical marijuana, marijuana, street drug use. She drinks alcohol only occasionally. She works at [employer]. She lives at home with her parents. - Past Family History Father Additional Family Medical History / Comment(s): Father is alive at age 47 with no major medical problems. Mother Additional Family Medical History / Comment(s): Mother is alive at age 44 with no major medical problems. Sister(s) Additional Family Medical History / Comment(s): Patient has one sister that has had an arrhythmia status post ablation done by Dr. Gimenez and history of Pott' s disease. Patient has a grandfather also had an ablation procedure done. Medications and Allergies Home Medications Medication Instructions Recorded Confirmed Type Ibuprofen [Motrin] 800 mg PO BID PRN 09/29/16 11/09/16 History Norgestimate-Ethinyl Estradiol 1 tab PO HS 09/29/16 11/09/16 History [Tri-Sprintec Tablet] Allergies Allergy/AdvReac Type Severity Reaction Status Date / Time No Known Allergies Allergy Verified 11/09/16 17:14 Physical Exam Vitals: Vital Signs Temp Pulse Pulse Pulse Pulse Resp BP 11/10/16 15:38 98.2 F 61 16 11/10/16 08:54 54 L 61 48 L 11/10/16 01:35 98 F 61 16 11/09/16 21:51 98.4 F 60 16 11/09/16 21:07 98.1 F 58 L 18 117/69 11/09/16 19:05 75 18 117/78 11/09/16 18:05 68 18 110/69 11/09/16 18:02 97.6 F 85 87 69 15 11/09/16 16:59 96.9 F L 68 18 113/66 BP BP BP Pulse Ox 11/10/16 15:38 109/59 98 11/10/16 08:54 104/60 113/70 100/52 11/10/16 01:35 91/47 97 11/09/16 21:51 107/74 99 11/09/16 21:07 98 11/09/16 19:05 98 11/09/16 18:05 98 11/09/16 18:02 109/70 116/71 110/69 100 11/09/16 16:59 98 Intake and Output 11/10/16 11/10/16 11/10/16 06:59 14:59 22:59 Intake Total 825 700 Balance 825 700 Intake: Intake, IV Titration 825 600 Amount Sodium Chloride 0.9% 1, 825 600 000 ml @ 75 mls/hr IV . [id number] [facility] Rx#:[id number] Oral 100 Other: Weight 52.163 kg Patient Weight 11/11/16 06:59 Weight 52.163 kg Gen: This is a thin 21-year-old female. She is sitting up in bed and appears to be in no acute distress. HEENT: Head is atraumatic, normocephalic. Pupils equal, round. Sclerae is anicteric. Conjunctiva pink. Mucous members of the mouth are slightly dry. Dentition is in good order. NECK: Supple. No JVD. No lymphadenopathy. No thyromegaly. LUNGS: Clear to auscultation. No wheezes or rhonchi. No intercostal retractions. HEART: Regular rate and rhythm. No murmur. ABDOMEN: Soft. Bowel sounds are present. No masses. Mild epigastric tenderness. EXTREMITIES: No pedal edema. No calf tenderness. NEUROLOGICAL: Patient is awake, alert and oriented x3. Cranial nerves 2 through 12 are grossly intact. Results CBC & Chem 7: 11/10/16 06:34 11/10/16 06:34 Labs: Abnormal Lab Results - Last 24 Hours (Table) 11/09/16 11/09/16 11/10/16 Range/Units 17:17 17:26 06:34 Total Bilirubin 2.6 H 1.9 H (0.2-1.3) mg/dL Urine Appearance Cloudy H (Clear) Ur Leukocyte Esterase Small H (Negative) Urine WBC 6 H (0-5) /hpf Ur Squamous Epith Cells 10 H (0-4) /hpf Amorphous Sediment Occasional H (None) /hpf Urine Bacteria Occasional H (None) /hpf Urine Mucus Rare H (None) /hpf Thrombosis Risk Factor Assmnt - DVT/VTE Prophylaxis DVT/VTE Prophylaxis: Mechanical Prophylaxis ordered Assessment and Plan Plan: 1. Syncopal episode most likely vasovagal. Consult with cardiology is appreciated. Echocardiogram has been completed and report is pending. Orthostatics have been negative. 2. Epigastric pain. Consult with Dr. Payne appreciated. Acute hepatitis panel pending. 3. Elevated bilirubin secondary to Gilbert's syndrome with chronically elevated total bilirubin. Baseline is 1.9. 4. Headache. Continue Tylenol. Avoid ibuprofen. 5. Unexplained weight loss. Patient to increase physical activity and increase protein intake. 6. Depression, recurrent currently following with a counselor and stopped taking Lexapro recently, stable. Patient will be admitted to the hospital for a minimum of 2 night stay. Discharge plan: Return home Impression and plan of care have been directed as dictated by the signing physician. Gissel Donaldson nurse practitioner acting as scribe for signing physician.
[2016-11-10 16:20] LABS: Hepatitis B Surface Ag Index 0.06
[2016-11-10 16:26] LABS: Hepatitis B Core IgM Index 0.03
[2016-11-10 16:38] LABS: Hepatitis C Virus IgG Ab Negative (Negative); Hepatitis C Virus IgG Index 0.02
[2016-11-11] MEDS: ACETAMINOPHEN TAB 325 MG TAB PO PRN ×2 (01:20→08:47)
[2016-11-11] MEDS: SODIUM CHLORIDE 0.9% 1,000 ML IV SCH ×2 (03:32→08:48)
[2016-11-11] MEDS: FAMOTIDINE 20 MG TAB PO SCH (08:47)
--- NOTE | 2016-11-11 09:23 | ECHOF ---
Referral Reason:chest pain MEASUREMENTS -------- HEIGHT: 170.2 cm WEIGHT: 52.2 kg BP: RVIDd: 2.2 cm (< 3.3) IVSd: 0.8 cm (0.6 - 1.1) LVIDd: 4.0 cm (3.9 - 5.3) LVPWd: 0.8 cm (0.6 - 1.1) IVSs: 1.3 cm LVIDs: 2.4 cm LVPWs: 1.4 cm LAESV Index (A-L): 27.40 ml/m Ao Diam: 2.4 cm (2.0 - 3.7) AV Cusp: 2.0 cm (1.5 - 2.6) LA Diam: 2.4 cm (2.7 - 3.8) MV EXCURSION: 15.098 mm (> 18.000) MV EF SLOPE: 93 mm/s (70 - 150) EPSS: 0.7 cm MV E Franco: 0.89 m/s MV DecT: 340 ms MV A Franco: 0.56 m/s MV E/A Ratio: 1.59 RAP: 5.00 mmHg RVSP: 24.48 mmHg FINDINGS -------- Resting bradycardia (HR<60bpm). This was a technically good study. Overall left ventricular systolic function is normal with, an EF between 60 - 65 %. The right ventricle is normal in size and function. Normal LA size by volume 22+/-6 ml/m2. The right atrium is normal in size. The aortic valve is trileaflet, and appears structurally normal. No aortic stenosis or regurgitation. Normal appearing mitral valve. There is trace mitral regurgitation. Trace tricuspid regurgitation present. There is no evidence of pulmonary hypertension. The right ventricular systolic pressure, as measured by Doppler, is 24.48mmHg. Pulmonic valve appears structurally normal. The aortic root size is normal. The inferior vena cava is dilated with poor inspiratory collapse which is consistent with estimated right atrial pressure of 20 mmHg. The pericardium is normal. There is no pericardial effusion. CONCLUSIONS -------- 1. Resting bradycardia (HR<60bpm). 2. The aortic root size is normal. 3. The inferior vena cava is dilated with poor inspiratory collapse which is consistent with estimated right atrial pressure of 20 mmHg. 4. There is no pericardial effusion. 5. This was a technically good study. 6. Overall left ventricular systolic function is normal with, an EF between 60 - 65 %. 7. Normal LA size by volume 22+/-6 ml/m2. 8. The aortic valve is trileaflet, and appears structurally normal. No aortic stenosis or regurgitation. 9. There is trace mitral regurgitation. 10. Trace tricuspid regurgitation present. 11. There is no evidence of pulmonary hypertension. 12. The right ventricular systolic pressure, as measured by Doppler, is 24.48mmHg. PRIOR AUTHORIZATION NURSE: Ben Marmolejo RDCS
--- NOTE | 2016-11-11 10:28 | P.PN ---
Subjective Principal diagnosis: Syncope Patient is feeling much better no further episodes of syncope remains in sinus rhythm with sinus bradycardia echocardiogram shows normal LV function Objective - Vital Signs Vital signs: Vital Signs Temp 96.8 F L 11/11/16 08:40 Pulse 50 L 11/11/16 08:40 Resp 14 11/11/16 08:40 BP 109/66 11/11/16 08:40 Pulse Ox 98 11/11/16 02:24 Intake & Output 11/10/16 11/11/16 11/11/16 18:59 06:59 18:59 Intake Total 700 1025 Balance 700 1025 Weight 52.163 kg Intake: Intake, IV Titration 600 1025 Amount Sodium Chloride 0.9% 1, 800 000 ml @ 100 mls/hr IV . Q10H [facility] Rx#:[id number] Sodium Chloride 0.9% 1, 600 225 000 ml @ 75 mls/hr IV . [id number] [facility] Rx#:[id number] Oral 100 Other: # Voids 1 - Exam Patient is comfortable at rest vital signs are stable there is a jugular venous distention chest is clear Dr. percussion heart exam reveals first and second heart sounds no gallop exam extremities did not will any edema per for pulses are felt - Labs CBC & Chem 7: 11/10/16 06:34 11/10/16 06:34 Labs: Abnormal Lab Results - Last 24 Hours (Table) 11/10/16 Range/Units 06:34 Total Bilirubin 1.7 H (0.2-1.3) mg/dL Unconjugated Bilirubin 1.3 H (0.0-1.1) mg/dL Delta Bilirubin 0.4 H (0.0-0.2) mg/dL Assessment and Plan Plan: Syncope probably vasovagal in origin Patient is doing well echocardiogram appears normal no further workup at this time patient will need a stress test and Holter as outpatient
[2016-11-11 14:31] VITALS: BP 105/57; PULSE 55; RESP 18; TEMP 98.8
--- NOTE | 2016-11-11 14:44 | P.DS ---
Providers Date of admission: 11/09/16 19:53 Expected date of discharge: 11/11/16 Attending physician: Kendal Arias Consults: 11/09/16 20:43 Consult Physician Urgent Consulting Provider: Yenny Maria Consult Reason/Comments: elevated bilirubin Do you want consulting provider notified?: Yes 11/10/16 12:00 Consult Physician Routine Consulting Provider: Stacie Batista Consult Reason/Comments: syncope Do you want consulting provider notified?: Yes Primary care physician: Stated None Hospital Course: This is a 20-year-old female with no significant past medical history other than anxiety and depression. Patient does give history that one time in high school she had a syncopal episode and required using a Holter which no arrhythmia was discovered. 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 This was witnessed by her coworker. There was no injury and no injury to her head. She states at the time she had numbness in her hands. She was seen by EMS and brought into [facility] emergency center. She complains of headache since the incident that has continued. Patient does have recent weight loss of 10 pounds in the past 2 weeks which is unexplained. She states she is not trying to lose weight. She also complains of abdominal pain that started this morning. She has followed with a counselor and recently taken off Lexapro after only taking it for 2 weeks. Patient did not think that it was helping her and her counselor thought that it was safe for her to stop. Patient states that she has not been sleeping well for some time. She did have a breakup of engagement with her fianc in August. Yesterday morning she had Been crunch for breakfast and a turkey sandwich for lunch. Apparently this episode happened about one hour after eating her turkey sandwich. Family is concerned that she is not eating very well. Patient states that she thinks she is eating well and has a good appetite. HCG was negative. Urinalysis was cloudy, leukoesterase small WBC 6 and epithelial cells 10. Patient denies any urinary symptoms of burning or pain. Otherwise laboratory studies were normal except for total bilirubin which was elevated. Looking back on previous lab work, patient has had a chronically elevated total bilirubin. [facility]. 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 Patient continues to complain of headache and epigastric abdominal pain. Ultrasound gallbladder was negative and chest x-ray was normal. Orthostatic vital signs were negative. Echocardiogram has been obtained and report is pending. Patient states that she feels very weak ever since the incident. 11/11: Echocardiogram reveals EF 60-65%, bradycardia less than 60 bpm, inferior vena cava is dilated with poor inspiratory collapse, trace mitral regurgitation , trace tricuspid regurgitation, no pulmonary hypertension. Dr. Payne would like patient to follow-up in the office and plan for outpatient stress testing and Holter monitor. Patient has had no further syncope episodes. Last night she did have some dizziness. She has been started on [place] instant breakfast shakes which she is taking. Patient will be discharged home today in stable condition. Discharge Diagnoses: 1. Syncopal episode most likely vasovagal with component of dehydration and also sharp chest pain secondary to possible esophageal spasm. 2. Epigastric pain. 3. Elevated bilirubin secondary to Gilbert's syndrome with chronically elevated total bilirubin. Baseline is 1.9. 4. Headache. 5. Unexplained weight loss. 6. Depression, recurrent Discharge plan: Return home Impression and plan of care have been directed as dictated by the signing physician. Gissel Donaldson nurse practitioner acting as scribe for signing physician. Patient Condition at Discharge: Good Plan - Discharge Summary New Discharge Prescriptions: New Famotidine [Pepcid] 20 mg PO BID #60 tab Continue Norgestimate-Ethinyl Estradiol [Tri-Sprintec Tablet] 1 tab PO HS Escitalopram [Lexapro] 10 mg PO DAILY #30 tab Discontinued Ibuprofen [Motrin] 800 mg PO BID PRN PRN Reason: Pain Discharge Medication List Norgestimate-Ethinyl Estradiol [Tri-Sprintec Tablet] 1 tab PO HS 09/29/16 [ History] Escitalopram [Lexapro] 10 mg PO DAILY #30 tab 09/30/16 [Rx] Famotidine [Pepcid] 20 mg PO BID #60 tab 11/11/16 [Rx] Follow up Appointment(s)/Referral(s): Kendal Arias MD [STAFF PHYSICIAN] - 11/16/16 (office was closed, please have pt call to schedule appointment on Monday, November 16. ) Richard Maria MD [STAFF PHYSICIAN] - 12/26/16 1:00 pm (PT is to follow up with [facility] in 6-8 weeks (December appt made). Pt is to follow up at [facility] for a regular stress test and a haulter monitor. ) Discharge Disposition: HOME SELF-CARE
== END 2016-11-11 15:32 | disposition home or self-care (01) | DRG 309 ==
LOC: EC 16:58 → 3SUR 19:53
PROVIDERS: ADMIT Internal Medicine; ATTEND Internal Medicine
DX: R00.1 Bradycardia, unspecified (principal); F33.9 Major depressive disorder, recurrent, unspecified; R55 Syncope and collapse; E86.0 Dehydration; E80.4 Gilbert syndrome; R63.4 Abnormal weight loss; R07.9 Chest pain, unspecified; K22.4 Dyskinesia of esophagus; R20.0 Anesthesia of skin; R53.1 Weakness; K21.9 Gastro-esophageal reflux disease without esophagitis; R10.13 Epigastric pain; F41.9 Anxiety disorder, unspecified; R51 Headache; R93.1 Abnormal findings on diagnostic imaging of heart and coronary circulation; G47.9 Sleep disorder, unspecified; Z86.79 Personal history of other diseases of the circulatory system; Z71.3 Dietary counseling and surveillance; Z82.49 Family history of ischemic heart disease and other diseases of the circulatory system; Z79.3 Long term (current) use of hormonal contraceptives; Z79.1 Long term (current) use of non-steroidal anti-inflammatories (NSAID)
CPT/HCPCS: 36415; 71020; 76705; 80053; 80074; 81001; 81025; 82150; 82248; 82550; 82553; 83690; 83735; 84484; 85025; 85610; 85730; 93005; 93306; 96360; 96361; 99285

== ENCOUNTER → 2016-11-23 | Outpatient (CLI) | payer MEDICAID ==
--- NOTE | 2016-11-23 12:12 | P.STRESS ---
- Stress Test Note Stress Test Results/Findings: Exam Performed: Exam Date: Height: Weight: Protocol: Stage: Duration of Exercise: Resting Heart Rate: Resting Blood Pressure: Maximum Achieved Heart Rate: Maximum Achieved Blood Pressure: 85% PMHR: 100% PMHR: METS: Technologist Comment: Stress Test Results/Findings: Baseline rhythm is sinus mechanism, rate of 74, baseline blood pressure 104/69 mmHg. Patient exercises on Aayush protocol to call for 10 minutes, 31 seconds reaching a peak rate of 179 bpm which is equal to 89% maximum predicted heart rate, peak blood pressure 146/60 mmHg. Test was terminated secondary to fatigue she had atypical chest pain. EKG monitoring revealed normal ST segment response. Impression: 1. Average exercise tolerance. 2. Atypical chest pain at peak exercise. 3. Normal EKG response during the stress test.
--- NOTE | 2016-11-23 14:39 | EST ---
Stress Test Results/Findings: Exam Performed: Stress Test Exam Date: 11/23/16 Height: 5 ft 8 in Weight: 117lbs Protocol: alona Stage: IV Duration of Exercise: 10:31 Resting Heart Rate: 74 Resting Blood Pressure: 104/69 Maximum Achieved Heart Rate: 179 Maximum Achieved Blood Pressure: 146/60 85% PMHR: 169 100% PMHR: 199 METS: 12.1 Technologist Comment: Stress Test Results/Findings: Baseline rhythm is sinus mechanism, rate of 74, baseline blood pressure 104/69 mmHg. Patient exercises on Alona protocol to call for 10 minutes, 31 seconds reaching a peak rate of 179 bpm which is equal to 89% maximum predicted heart rate, peak blood pressure 146/60 mmHg. Test was terminated secondary to fatigue she had atypical chest pain. EKG monitoring revealed normal ST segment response. Impression: 1. Average exercise tolerance. 2. Atypical chest pain at peak exercise. 3. Normal EKG response during the stress test. WILLIAM
--- NOTE | 2016-11-29 12:40 | EM ---
HOLTER MONITOR The patient was monitored for 24 hours. Baseline rhythm was sinus mechanism. The average rate 79 beats per minute, minimum 44, maximum 153 beats per minute. Ventricular ectopic activity was present in the form of rare single PVCs. Supraventricular ectopic activity was present in the form of rare single PACs. Symptoms of stomachache, a little pain in the chest, short of breath did not correlate with any dysrhythmia. CONCLUSION: 1. Sinus mechanism baseline rhythm. 2. Rare ventricular ectopic activity. 3. Rare supraventricular ectopic activity. 4. Symptoms did not correlate with any arrhythmia. MTDD
== END | disposition home or self-care (01) ==
LOC: RADNMMAIN 11:04
PROVIDERS: ATTEND Internal Medicine Interventional Cardiology
DX: R55 Syncope and collapse (principal); R07.89 Other chest pain
CPT/HCPCS: 93017; 93225; 93226

== ENCOUNTER 2017-05-18 10:21 | Emergency (ER) | payer MEDICAID ==
--- NOTE | 2017-05-18 10:47 | ED ---
Psych HPI - General Chief Complaint: Psychiatric Symptoms Stated Complaint: Mental health Time Seen by Provider: 05/18/17 10:35 Source: patient, family Mode of arrival: ambulatory - History of Present Illness Initial Comments: 21-year-old white female presents with mother with a complaint of depression. She states that she has had depression intermittently over the last 1 year and it is been worse over the past couple of weeks. She was at her primary care physician's office today and they sent her in for further psychiatric evaluation. She denies any homicidal or suicidal ideations. She states that she previously was on Lexapro but this did not seem to help and she had some side effects so stopped it. She was hospitalized for psychiatric reasons in September of this past year. She denies any current medical issues. She denies any possibility of . She denies any current life stressors. She is currently in college. No other complaints or modifying factors. - Related Data Home Medications Medication Instructions Recorded Confirmed Norgestimate-Ethinyl Estradiol 1 tab PO HS 09/29/16 05/18/17 [Tri-Sprintec Tablet] Ibuprofen [Motrin] 800 mg PO Q6HR PRN 05/18/17 05/18/17 Previous Rx's Medication Instructions Recorded Sertraline [Zoloft] 50 mg PO DAILY #30 tab 05/18/17 Allergies Allergy/AdvReac Type Severity Reaction Status Date / Time No Known Allergies Allergy Verified 05/18/17 10:53 Review of Systems ROS Statement: Those systems with pertinent positive or pertinent negative responses have been documented in the HPI. ROS Other: All systems not noted in ROS Statement are negative. Past Medical History Past Medical History: No Reported History History of Any Multi-Drug Resistant Organisms: None Reported Past Surgical History: No Surgical Hx Reported Additional Past Surgical History / Comment(s): Chin reconstruction Past Anesthesia/Blood Transfusion Reactions: No Reported Reaction Past Psychological History: Anxiety, Depression Smoking Status: Never smoker Past Alcohol Use History: Occasional Past Drug Use History: None Reported - Past Family History Father Additional Family Medical History / Comment(s): Father is alive at age 47 with no major medical problems. Mother Additional Family Medical History / Comment(s): Mother is alive at age 44 with no major medical problems. Sister(s) Additional Family Medical History / Comment(s): Patient has one sister that has had an arrhythmia status post ablation done by Dr. Gimenez and history of Pott' s disease. Patient has a grandfather also had an ablation procedure done. General Exam - General Exam Comments Initial Comments: GENERAL: The patient is well nourished and well hydrated. VITAL SIGNS: Heart rate, blood pressure, respiratory rate reviewed as recorded in nurse's notes. EYES: Pupils are round and reactive. Extraocular movements are intact. No conjunctival / lid redness or swelling. ENT: No external evidence of injury, swelling, or ecchymosis. Airway is patent. Throat is clear. NECK: Nontender. No swelling or evidence of injury. No subcutaneous emphysema. Trachea is midline. No thyroid mass. HEART: Regular rate and rhythm. Good peripheral pulses. LUNGS/CHEST: Breath sounds clear and equal bilaterally. No rales, rhonchi, or wheezes. No ecchymosis, subcutaneous emphysema, or tenderness. ABDOMEN: Abdomen soft without tenderness. No palpable masses or organomegaly. No peritoneal signs. No abdominal wall swelling or ecchymosis. EXTREMITIES: No extremity tenderness. Normal muscle tone and function. No thoracolumbar tenderness. NEUROLOGIC: Sensation is grossly intact. Cranial nerve exam reveals face is symmetrical, tongue is midline, speech is clear. SKIN: No abrasions or ecchymosis is noted. No induration or masses noted. PSYCHIATRIC: Alert and oriented. Appropriate behavior and judgment. Limitations: no limitations Course Vital Signs 05/18/17 05/18/17 10:29 12:30 Temperature 97.4 F L Pulse Rate 54 L 75 Respiratory 15 18 Rate Blood Pressure 114/72 97/57 O2 Sat by Pulse 100 96 Oximetry Medical Decision Making - Medical Decision Making The patient was seen and examined. All diagnostics were reviewed. This felt as though she is medically cleared for further psychiatric evaluation. The psychiatric nurse does evaluate the patient and the case is discussed with her. She feels as though she is stable for discharge and does provide her with outpatient resources for follow-up. It appears that her depression well significant is still a milder case she certainly is not suicidal at this time. We both feel as though she benefit from a low-dose SSRI type medication. She' ll be placed on Zoloft 50 mg daily. Return parameters are discussed in detail she lives in no distress. - Lab Data Lab Results 05/18/17 Range/Units 11:17 Urine Opiates Screen Not Detected (NotDetected) Ur Oxycodone Screen Not Detected (NotDetected) Urine Methadone Screen Not Detected (NotDetected) Ur Propoxyphene Screen Not Detected (NotDetected) Ur Barbiturates Screen Not Detected (NotDetected) U Tricyclic Antidepress Not Detected (NotDetected) Ur Phencyclidine Scrn Not Detected (NotDetected) Ur Amphetamines Screen Not Detected (NotDetected) U Methamphetamines Scrn Not Detected (NotDetected) U Benzodiazepines Scrn Not Detected (NotDetected) Urine Cocaine Screen Not Detected (NotDetected) U Marijuana (THC) Screen Not Detected (NotDetected) Disposition Clinical Impression: Depression Disposition: HOME SELF-CARE Condition: Good Instructions: Depression (ED) Additional Instructions: Please follow-up with the psychiatric nurses recommendations in regard to further psychiatric treatment. Prescriptions: Sertraline [Zoloft] 50 mg PO DAILY #30 tab Referrals: Lucero Fernandez MD [STAFF PHYSICIAN] - 1-2 days Time of Disposition: 14:33
[2017-05-18 11:33] LABS: Amphetamine Screen,Urine Not Detected (NotDetected); Barbiturate Screen,Urine Not Detected (NotDetected); Benzodiazepines Screen,Urine Not Detected (NotDetected); Cocaine Screen,Urine Not Detected (NotDetected); Methadone Screen, Urine Not Detected (NotDetected); Opiate Screen,Urine Not Detected (NotDetected); Oxycodone Screen, Urine Not Detected (NotDetected); Phencyclidine Screen,Urine Not Detected (NotDetected); Tricyclic Antidepressant,Urine Not Detected (NotDetected); Urn Cannabinoid Scrn Not Detected (NotDetected)
[2017-05-18 16:34] VITALS: BP 97/57; PULSE 75; RESP 18; TEMP 97.4
== END 2017-05-18 14:41 | disposition home or self-care (01) ==
LOC: EC 10:21
DX: F32.9 Major depressive disorder, single episode, unspecified (principal); Z79.3 Long term (current) use of hormonal contraceptives
CPT/HCPCS: 80306; 82075; 99284

== ENCOUNTER 2017-06-14 10:42 | Day surgery (SDC) | payer MEDICAID ==
--- NOTE | 2017-06-14 04:05 | HP ---
HISTORY AND PHYSICAL DATE OF SERVICE: Surgery scheduled for 06/14/2017. HISTORY OF PRESENT ILLNESS: Naima Szymanski is a 21-year-old patient seen with left knee pain. She had previous had been diagnosed with internal derangement left knee with meniscal tear. She had a traumatic twisting injury and was seen in the office on 06/13/2017 with a locked knee. I recommended left knee arthroscopy with partial meniscectomy and debridement. I discussed the procedure, risks, complications, and recovery. Patient was agreeable. Consent was obtained. PAST MEDICAL HISTORY: Noncontributory. PAST SURGICAL HISTORY: Noncontributory. MEDICATIONS: Motrin as needed, Sprintec. ALLERGIES: None reported. SOCIAL HISTORY: Patient denies tobacco use. PHYSICAL EXAMINATION: Physical evaluation left knee range of motion 0-20 degrees. There is a large effusion. Tenderness medial joint line. Positive medial Kenya's. Collateral ligaments appear stable. Log rolling of the hips without pain. Distal neurovascular exam is intact. Left knee radiographs obtained on 06/13/2017 filter reveal osseous abnormality. The previous MRI obtained 09/27/2016 revealed a joint effusion. Abnormal signal of the medial meniscus. IMPRESSION: Internal derangement, left knee with medial meniscal tear and locked knee. PLAN: Left knee arthroscopy with partial meniscectomy and debridement. Surgery is 06/14/2017. MMODL / IJN: [id number] /
[~2017-06-14 10:42] MED LIST: ceFAZolin 1,000 MG in DEXTROSE/WATER 1 50ML.BAG IV ONE
[2017-06-14] MEDS ORDERED: LACTATED RINGERS 1,000 ML IV SCH (11:27)
[2017-06-14] MEDS ORDERED: ONDANSETRON 4 MG/2 ML VIAL IVP ONE (11:27)
[2017-06-14] MEDS ORDERED: DEXAMETHASONE SOD PHOSPHATE 10 MG/ML 1 ML VIAL IV ONE (11:27)
[2017-06-14] MEDS ORDERED: MIDAZOLAM 2 MG/2 ML VIAL IV PRN (11:27)
[2017-06-14 11:46] VITALS: BMI 18.7
[2017-06-14] MEDS ORDERED: LACTATED RINGERS 1,000 ML IV ONE (11:48)
[2017-06-14] MEDS ORDERED: LIDOCAINE 1% 20 ML VIAL (10MG/ML) FOR IV START INTRADERMA ONE (11:49)
[2017-06-14] MEDS: ONDANSETRON 4 MG/2 ML VIAL IVP ONE ×2 (11:49→15:02)
[2017-06-14] MEDS ORDERED: DEXAMETHASONE SOD PHOS (MDV) 100 MG/10 ML VIAL IVP ONE (11:50)
[2017-06-14] MEDS ORDERED: SUCCINYLCHOLINE CHLORIDE 100 MG/5 ML SYR IV ONE (13:31)
[2017-06-14] MEDS ORDERED: PROPOFOL 10 MG/ML 20 ML VIAL IV ONE (13:31)
[2017-06-14] MEDS ORDERED: MIDAZOLAM 2 MG/2 ML VIAL ONE (13:31)
[2017-06-14] MEDS ORDERED: LIDOCAINE 1% INJ 10MG/ML (20 ML MDV) ONE (13:31)
[2017-06-14] MEDS ORDERED: fentaNYL (PF) 50 MCG/ML 2 ML AMP ONE (13:31)
[2017-06-14] MEDS ORDERED: ePHEDrine SULFATE/0.9% NACL/PF 50 MG/5 ML SYRINGE IV ONE (13:31)
[2017-06-14] MEDS ORDERED: BUPIVACAINE (PF) 0.25% 30 ML VIAL SQ ONE (13:50)
--- NOTE | 2017-06-14 14:22 | P.OP ---
Date of Procedure: 06/14/17 Preoperative Diagnosis: Internal derangement left knee Postoperative Diagnosis: 1. Medial meniscal tear left knee 2. Medial plica left knee 3. Reactive synovitis medial and suprapatellar compartments left knee Procedure(s) Performed: 1. Arthroscopic partial medial meniscectomy left knee 2. Arthroscopic resection medial plica left knee 3. Arthroscopic partial synovectomy medial and suprapatellar compartments left knee Anesthesia: GETA, local Surgeon: Timmy Day Estimated Blood Loss (ml): 9 Pathology: none sent Condition: stable Disposition: PACU Indications for Procedure: 21-year-old patient seen with left knee pain. Treatment options were discussed , she elected to proceed with arthroscopy. Operative Findings: See description of procedure Description of Procedure: Patient was taken to the operative suite. Patient underwent a general anesthetic by the department of anesthesia. Patient was given preoperative antibiotics. The left lower extremity was placed in a well-padded arthroscopic leg domingo. The left leg was prepped and draped in the normal sterile orthopedic fashion. A lateral parapatellar and suprapatellar incision was made. Trochars were inserted. Arthroscopy was initiated. Suprapatellar pouch revealed diffuse thick reactive synovitis. The patellofemoral joint appeared to articulate congruently. There was no chondromalacia present. The scope was guided into the medial gutter. There was a medial plica which did seem to impinge along the medial femoral condyle with range of motion The scope was then guided into the medial compartment. A medial parapatellar incision was made. Trocar inserted followed by probe. There was a [id number]-gjgskf-ttoy anterior horn medial meniscal tear. It extended just shy of the midbody. The midbody and posterior horn were stable. There was reactive synovitis anteriorly. No chondromalacia or loose bodies. I debrided that tear down to stable tissue as it was a white zone tear and it did not appear repairable. The residual meniscus was stable. I performed a partial synovectomy. There was good complete decompression of that reactive synovitis now. Scope and probe were then guided into the intercondylar notch. Cruciates were identified , probed and found to be stable. The scope and probe were then guided into lateral compartment. The lateral meniscus was intact and stable. There was no reactive synovitis. There were no loose bodies. The scope was in guided back into the suprapatellar compartment. I introduced a motorized shaver and super patellar compartment. I resected that medial plica. I performed a partial synovectomy. The shaver was removed. I took the knee through range of motion and noted complete resection of the plica and no impingement of the medial femoral condyle. I now took one more look on the entire knee, no residual debris. Instruments were now removed from the joint. The joint was infiltrated with .25% Marcaine. Steri-Strips were applied to the portal sites. Sterile dressings were applied. The patient was placed into a GABRIELLA hose. No tourniquet was utilized. The patient was awakened, transferred to a bed and taken to recovery stable satisfactory condition.
[2017-06-14 14:39] VITALS: TEMP 98
[2017-06-14] MEDS: HYDROmorphone 2 MG/ML 1 ML SYRINGE IVP PRN ×4 (14:55→15:10)
[2017-06-14] MEDS ORDERED: KETOROLAC 30 MG/ML 1 ML VIAL IVP ONE (15:02)
[2017-06-14] MEDS ORDERED: MEPERIDINE 50 MG/ML SYRINGE IVP ONE (15:14)
[2017-06-14 15:55] VITALS: RESP 16
[2017-06-14] MEDS ORDERED: diphenhydrAMINE 50 MG/ML 1 ML VIAL IVP ONE (16:15)
[2017-06-14 17:31] VITALS: BP 106/65; PULSE 82
== END 2017-06-14 17:38 | disposition home or self-care (01) ==
LOC: OR 10:42
PROVIDERS: ATTEND Orthopaedic Surgery
DX: S83.212A Bucket-handle tear of medial meniscus, current injury, left knee, initial encounter (principal); M67.52 Plica syndrome, left knee; M65.9 Synovitis and tenosynovitis, unspecified; K21.9 Gastro-esophageal reflux disease without esophagitis; F17.200 Nicotine dependence, unspecified, uncomplicated; X58.XXXA Exposure to other specified factors, initial encounter; X50.1XXA Overexertion from prolonged static or awkward postures, initial encounter; Z79.3 Long term (current) use of hormonal contraceptives; Z79.899 Other long term (current) drug therapy
CPT/HCPCS: 29881; 81025; J2250; J1170; J1200; J2175; J2405; J2001; J3010; J1885; J0690; J1100; J0330; J2704

== ENCOUNTER 2017-07-18 16:37 | Emergency (ER) | payer MEDICAID ==
[2017-07-18 17:17] LABS: Basophils # (A) 0.1 k/uL (0-0.2); Basophils % (A) 1 %; Eosinophils # (A) 0.1 k/uL (0-0.7); Eosinophils % (A) 1 %; HCT 39.1 % (34.0-46.0); HGB 13.6 gm/dL (11.4-16.0); Lymphocytes % (A) 9 %; MCH 28.5 pg (25.0-35.0); MCHC 34.9 g/dL (31.0-37.0); MCV 81.7 fL (80.0-100.0); Mean Platelet Volume 7.6; Monocytes # (A) 0.4 k/uL (0-1.0); Monocytes % (A) 4 %; Neutrophils # (A) 8.8 k/uL (1.3-7.7); Neutrophils % (A) 84 %; Platelet Count 243 k/uL (150-450); RBC 4.78 m/uL (3.80-5.40); RDW 12.8 % (11.5-15.5); WBC 10.5 k/uL (3.8-10.6)
[2017-07-18 17:32] LABS: ALT 38 U/L (9-52); AST 25 U/L (14-36); Albumin 4.6 g/dL (3.5-5.0); Alkaline Phosphatase 59 U/L (38-126); Amylase 41 U/L (30-110); Anion Gap 13 mmol/L; Blood Urea Nitrogen 17 mg/dL (7-17); Calcium 9.7 mg/dL (8.4-10.2); Carbon Dioxide 26 mmol/L (22-30); Chloride 100 mmol/L (98-107); Glucose 98 mg/dL (74-99); Lipase 86 U/L (23-300); Potassium 4.2 mmol/L (3.5-5.1); Sodium 139 mmol/L (137-145); Total Bilirubin 3.4 mg/dL (0.2-1.3); Total Protein 7.7 g/dL (6.3-8.2)
[2017-07-18] MEDS ORDERED: ACETAMINOPHEN TAB 500 MG TAB PO STA (17:41)
[2017-07-18] MEDS ORDERED: ONDANSETRON 4 MG/2 ML VIAL IVP STA (17:41)
[2017-07-18] MEDS ORDERED: SODIUM CHLORIDE 0.9% 1,000 ML IV STA (17:41)
[2017-07-18] MEDS ORDERED: IBUPROFEN 600 MG TAB PO STA (17:41)
[2017-07-18] MEDS ORDERED: RX INFO: IV CONTRAST WAS GIVEN 1 EACH MISC MISCELLANE PRN (17:50)
--- NOTE | 2017-07-18 18:16 | ED ---
General Adult HPI - General Chief complaint: Nausea/Vomiting/Diarrhea Stated complaint: Numbness in legs, fever, nauseated Time Seen by Provider: 07/18/17 17:26 Source: patient, family, RN notes reviewed Mode of arrival: wheelchair Limitations: no limitations - History of Present Illness Initial comments: 21-year-old female presents to the emergency department with chief complaint of multiple complaints. First she woke up this morning with nausea vomiting and diarrhea. Patient states then she noticed that her left leg felt a little warmer and she did have surgery to this previously. She states that it's always been swollen following the procedure but it seems a little warmer in both her legs feel kind of numbness tingling today. She states she's also had some chest pain and SOB and she had the surgery about one month ago. She states that she also has a headache. There is no Motrin or Tylenol given today. She states that she just did not feel like eating. They were concerns they went to urgent care and they were referred here. Patient denies any recent fever, chills, back pain, numbness or tingling, dysuria or hematuria, constipation or diarrhea, headaches or visual changes, or any other current symptoms. - Related Data Home Medications Medication Instructions Recorded Confirmed Norgestimate-Ethinyl Estradiol 1 tab PO HS 09/29/16 07/18/17 [Tri-Sprintec Tablet] Ibuprofen [Motrin] 800 mg PO Q6HR PRN 05/18/17 07/18/17 Sertraline [Zoloft] 50 mg PO HS 07/18/17 07/18/17 Previous Rx's Medication Instructions Recorded Cephalexin [Keflex] 500 mg PO Q6HR #40 cap 07/18/17 Ondansetron Odt [Zofran ODT] 4 mg PO Q8HR PRN #20 tab 07/18/17 Allergies Allergy/AdvReac Type Severity Reaction Status Date / Time No Known Allergies Allergy Verified 07/18/17 17:26 Review of Systems ROS Statement: Those systems with pertinent positive or pertinent negative responses have been documented in the HPI. ROS Other: All systems not noted in ROS Statement are negative. Past Medical History Past Medical History: No Reported History History of Any Multi-Drug Resistant Organisms: None Reported Past Surgical History: Orthopedic Surgery Additional Past Surgical History / Comment(s): Chin reconstruction, knee Past Anesthesia/Blood Transfusion Reactions: No Reported Reaction Past Psychological History: Anxiety, Depression Smoking Status: Never smoker Past Alcohol Use History: Occasional Past Drug Use History: None Reported - Past Family History Father Additional Family Medical History / Comment(s): Father is alive at age 47 with no major medical problems. Mother Additional Family Medical History / Comment(s): Mother is alive at age 44 with no major medical problems. Sister(s) History Unknown: Yes Additional Family Medical History / Comment(s): Patient has one sister that has had an arrhythmia status post ablation done by Dr. Gimenez and history of Pott' s disease. Patient has a grandfather also had an ablation procedure done. General Exam - General Exam Comments Initial Comments: General: The patient is awake and alert, in no distress, and does not appear acutely ill. Eye: Pupils are equal, round and reactive to light, extra-ocular movements are intact; there is normal conjunctiva bilaterally. No signs of icterus. Ears, nose, mouth and throat: There are moist mucous membranes and no oral lesions. Neck: The neck is supple, there is no tenderness. Cardiovascular: There is a regular rate and rhythm. No murmur, rub or gallop is appreciated. Respiratory: Lungs are clear to auscultation, respirations are non-labored, breath sounds are equal. No wheezes, stridor, rales, or rhonchi. Gastrointestinal: Soft, non-distended, non-tender abdomen without masses or organomegaly noted. There is no rebound or guarding present. No CVA tenderness. Bowel sounds are unremarkable. Back: There is no tenderness to palpation in the midline. There is no obvious deformity. No rashes noted. Musculoskeletal: Normal ROM, no tenderness, There is no pedal edema. There is no calf tenderness or swelling. Sensation intact. Pulses equal bilaterally 2+. Some swelling around left knee. Minimal warmth to touch. No redness. Neurological: CN II-XII intact, There are no obvious motor or sensory deficits. Coordination appears grossly intact. Speech is normal. Skin: Skin is warm and dry and no rashes or lesions are noted. Psychiatric: Cooperative, appropriate mood & affect, normal judgment. Limitations: no limitations Course Vital Signs 07/18/17 07/18/17 07/18/17 16:52 17:19 19:16 Temperature 101.0 F H 101 F H Pulse Rate 120 H 98 100 Respiratory 20 16 16 Rate Blood Pressure 103/56 102/58 102/54 O2 Sat by Pulse 100 98 99 Oximetry Medical Decision Making - Medical Decision Making 21-year-old female presents to the emergency department with a chief complaint of multiple complaints. At this time patient's lab work is been reviewed. She does have a little bit of warmth to the left knee to palpation. This and we will start her on Keflex we discussed she needs follow-up with orthopedic for this. We discussed her nausea vomiting is most likely due to a viral like syndrome. We did discuss return parameters and follow-up and all questions. Patient stated that she understood and management this plan. All questions have been answered. They will be discharged. - Lab Data Result diagrams: 07/18/17 17:04 07/18/17 17:04 Lab Results 07/18/17 07/18/17 07/18/17 Range/Units 17:04 17:04 17:04 WBC 10.5 (3.8-10.6) k/uL RBC 4.78 (3.80-5.40) m/uL Hgb 13.6 (11.4-16.0) gm/dL Hct 39.1 (34.0-46.0) % MCV 81.7 (80.0-100.0) fL MCH 28.5 (25.0-35.0) pg MCHC 34.9 (31.0-37.0) g/dL RDW 12.8 (11.5-15.5) % Plt Count 243 (150-450) k/uL Neutrophils % 84 % Lymphocytes % 9 % Monocytes % 4 % Eosinophils % 1 % Basophils % 1 % Neutrophils # 8.8 H (1.3-7.7) k/uL Lymphocytes # 1.0 (1.0-4.8) k/uL Monocytes # 0.4 (0-1.0) k/uL Eosinophils # 0.1 (0-0.7) k/uL Basophils # 0.1 (0-0.2) k/uL ESR (0-20) mm/hr Sodium 139 (137-145) mmol/L Potassium 4.2 (3.5-5.1) mmol/L Chloride 100 (98-107) mmol/L Carbon Dioxide 26 (22-30) mmol/L Anion Gap 13 mmol/L BUN 17 (7-17) mg/dL Creatinine 0.79 (0.52-1.04) mg/dL Est GFR (CKD-EPI)AfAm >90 (>60 ml/min/1.73 sqM) Est GFR (CKD-EPI)NonAf >90 (>60 ml/min/1.73 sqM) Glucose 98 (74-99) mg/dL Calcium 9.7 (8.4-10.2) mg/dL Total Bilirubin 3.4 H (0.2-1.3) mg/dL AST 25 (14-36) U/L ALT 38 (9-52) U/L Alkaline Phosphatase 59 (38-126) U/L C-Reactive Protein (<10.0) mg/L Total Protein 7.7 (6.3-8.2) g/dL Albumin 4.6 (3.5-5.0) g/dL Amylase 41 (30-110) U/L Lipase 86 (23-300) U/L Influenza Type A RNA Not Detected (Not Detectd) Influenza Type B (PCR) Not Detected (Not Detectd) 07/18/17 07/18/17 Range/Units 17:04 17:04 WBC (3.8-10.6) k/uL RBC (3.80-5.40) m/uL Hgb (11.4-16.0) gm/dL Hct (34.0-46.0) % MCV (80.0-100.0) fL MCH (25.0-35.0) pg MCHC (31.0-37.0) g/dL RDW (11.5-15.5) % Plt Count (150-450) k/uL Neutrophils % % Lymphocytes % % Monocytes % % Eosinophils % % Basophils % % Neutrophils # (1.3-7.7) k/uL Lymphocytes # (1.0-4.8) k/uL Monocytes # (0-1.0) k/uL Eosinophils # (0-0.7) k/uL Basophils # (0-0.2) k/uL ESR 3 (0-20) mm/hr Sodium (137-145) mmol/L Potassium (3.5-5.1) mmol/L Chloride (98-107) mmol/L Carbon Dioxide (22-30) mmol/L Anion Gap mmol/L BUN (7-17) mg/dL Creatinine (0.52-1.04) mg/dL Est GFR (CKD-EPI)AfAm (>60 ml/min/1.73 sqM) Est GFR (CKD-EPI)NonAf (>60 ml/min/1.73 sqM) Glucose (74-99) mg/dL Calcium (8.4-10.2) mg/dL Total Bilirubin (0.2-1.3) mg/dL AST (14-36) U/L ALT (9-52) U/L Alkaline Phosphatase (38-126) U/L C-Reactive Protein 31.1 H (<10.0) mg/L Total Protein (6.3-8.2) g/dL Albumin (3.5-5.0) g/dL Amylase (30-110) U/L Lipase (23-300) U/L Influenza Type A RNA (Not Detectd) Influenza Type B (PCR) (Not Detectd) - Radiology Data Radiology results: report reviewed, image reviewed Disposition Clinical Impression: Nausea & vomiting, Diarrhea, Fever, Left knee pain Disposition: HOME SELF-CARE Condition: Stable Instructions: Knee Pain (ED), Gastroenteritis (ED) Additional Instructions: Please use medication as discussed. Please follow up with family doctor if symptoms have not improved over the next two days. Please return to the emergency room if your symptoms increase or worsen or for any other concerns. Prescriptions: Cephalexin [Keflex] 500 mg PO Q6HR #40 cap Ondansetron Odt [Zofran ODT] 4 mg PO Q8HR PRN #20 tab PRN Reason: Nausea Referrals: Kendal Arias MD [Primary Care Provider] - 1-2 days Time of Disposition: 20:14
--- NOTE | 2017-07-18 19:30 | CT ---
EXAMINATION TYPE: CT angio chest with 3-D reconstruction renderings DATE OF EXAM: 07/18/2017 7:04 PM COMPARISON: NONE HISTORY: Fever, numbness in legs, recent knee sx CT DLP: 120.2 mGycm Automated exposure control for dose reduction was used. CONTRAST: CTA scan of the thorax is performed with IV Contrast, patient injected with 60 mL of Omnipa que 350, pulmonary embolism protocol. Multiple 3-D reconstruction renderings were obtained. FINDINGS: LUNGS: The lungs are grossly clear, there is no concerning parenchymal mass or nodule identified. T here is no pleural effusion or pneumothorax seen. The tracheobronchial tree is patent. MEDIASTINUM: There is satisfactory enhancement of the pulmonary artery and its branches, there is no CT evidence for pulmonary embolism. There are no greater than 1 cm hilar or mediastinal lymph nodes. There is no cardiomegaly. No pericardial effusion is seen. Thoracic aorta is unremarkable. OTHER: No additional significant abnormality is seen. IMPRESSION: NO ACUTE PROCESSES.
--- NOTE | 2017-07-18 20:08 | XR ---
PROCEDURE: XR knee complete LT 3 views DATE AND TIME: 07/18/2017 8:01 PM REFERRING PHYSICIAN: Gladys Perez CLINICAL INDICATION: PHH, Pain TECHNIQUE: Department protocol. COMPARISON: None FINDINGS: There is no fracture or malalignment. The soft tissues are unremarkable. IMPRESSION: NO ACUTE PROCESS.
[2017-07-18 20:26] VITALS: BP 121/50; PULSE 97; RESP 18; TEMP 100.5
== END 2017-07-18 20:26 | disposition home or self-care (01) ==
LOC: EC 16:37
DX: M25.562 Pain in left knee (principal); R11.2 Nausea with vomiting, unspecified; R19.7 Diarrhea, unspecified; R50.9 Fever, unspecified; R51 Headache; R07.9 Chest pain, unspecified; R06.02 Shortness of breath; R20.0 Anesthesia of skin; F41.9 Anxiety disorder, unspecified; F32.9 Major depressive disorder, single episode, unspecified; Z98.890 Other specified postprocedural states; Z79.3 Long term (current) use of hormonal contraceptives; Z79.899 Other long term (current) drug therapy
CPT/HCPCS: 99284; 96374; 96361; 36415; 80053; 85652; 82150; 83690; 85025; 86140; 87502; 73562; 71275; Q9967; J2405